=== PATIENT | female | born 1995 | race Caucasian/White ===

== ENCOUNTER 2019-09-17 16:41 | Emergency (ER) | payer SELFPAY ==
[~2019-09-17] VITALS: Ht 154.9 cm; Wt 66.2 kg
[2019-09-17 17:04] VITALS: BP 121/69
== END 2019-09-17 18:53 | disposition left against medical advice (07) ==
LOC: MED 16:41
DX: R42 Dizziness and giddiness (principal); Z53.21 Procedure and treatment not carried out due to patient leaving prior to being seen by health care provider

== ENCOUNTER 2019-09-21 11:32 | Emergency (ER) | payer SELFPAY ==
[~2019-09-21] VITALS: Ht 160 cm; Wt 65.1 kg
[2019-09-21 11:41] VITALS: BP 126/80
--- NOTE | 2019-09-21 11:44 | NUR ---
urine cup handed to pt for sample
--- NOTE | 2019-09-21 12:02 | NUR ---
24/F presents to ED with complaints of headache for the past 2 weeks. Pt describes a pressure like headache to front of head radiating to back of head and neck, 10/10 for the past x2 weeks. Pt also c/o N/V and intermittent episodes of blurry vision. Pt states the headache has been constant and continuous. Pt denies any medical hx at this time. Pt is AOX4, clear speech, acting appropriate to age. Pt appears calm and relaxed, waiting for ERMD evaluation.
--- NOTE | 2019-09-21 12:15 | NUR ---
Patient being evaluated by DR SIDDIQUI at bedside.
[2019-09-21 13:23] LABS: BASOPHILS % (AUTO) 0.1 % (0.0-2.0); EOSINOPHILS # (AUTO) 0.1 K/uL (0-0.4); EOSINOPHILS % (AUTO) 1.6 % (0.0-4.0); HEMATOCRIT 41.9 % (36-48); HEMOGLOBIN 14.1 g/dL (12.0-16.0); LYMPHOCYTES # (AUTO) 1.9 K/uL (2.5-16.5); LYMPHOCYTES % (AUTO) 24.2 % (20.5-51.1); MEAN CORPUSCULAR HEMOGLOBIN 32 pg (27-31); MEAN CORPUSCULAR HGB CONC 34 g/dL (33-37); MONOCYTES # (AUTO) 0.3 K/uL (0.8-1.0); MONOCYTES % (AUTO) 3.8 % (1.7-9.3); NEUTROPHILS # (AUTO) 5.6 K/uL (1.8-7.7); NEUTROPHILS % (AUTO) 70.3 % (42.2-75.2); PLATELET COUNT (AUTO) 252 K/uL (140-450); RED BLOOD CELL COUNT(AUTO) 4.46 MIL/uL (4.20-5.40); RED CELL DISTRIBUTION WIDTH 12.7 % (11.6-13.7); WHITE BLOOD COUNT (AUTO) 7.9 K/uL (4.8-10.8)
[2019-09-21 13:40] LABS: ANION GAP 14.8 (8-16); CARBON DIOXIDE 27.3 mmol/L (21-32); CREATININE 0.7 mg/dL (0.6-1.3); POTASSIUM 4.1 mmol/L (3.5-5.1); TOTAL BILIRUBIN 0.5 mg/dL (0.0-1.0)
[2019-09-21 14:14] VITALS: BP 118/68
--- NOTE | 2019-09-21 14:14 | NUR ---
Patient discharged with v/s stable. Written and verbal after care instructions given and explained. Patient alert, oriented and verbalized understanding of instructions. Ambulatory with steady gait. All questions addressed prior to discharge. ID band removed. Patient advised to follow up with PMD. Rx of FIORICET given. Patient educated on indication of medication including possible reaction and side effects. Opportunity to ask questions provided and answered.
== END 2019-09-21 14:14 | disposition home or self-care (01) ==
LOC: MED 11:32
DX: R51 Headache (principal); M79.10 Myalgia, unspecified site
CPT/HCPCS: 36415; 80053; 81002; 81025; 85025; 99283

== ENCOUNTER 2019-10-06 18:40 | Emergency (ER) | payer SELFPAY ==
[~2019-10-06] VITALS: Ht 157.5 cm; Wt 64.9 kg
[2019-10-06 18:50] VITALS: BP 106/71
--- NOTE | 2019-10-06 18:55 | NUR ---
AMB TO [facility]
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
--- NOTE | 2019-10-06 21:11 | NUR ---
CARL POOLE WITH PT
[2019-10-06 21:24] VITALS: BP 106/62
--- NOTE | 2019-10-06 21:40 | NUR ---
NO CHANGES FROM PREVIOUS ASSESSMENT. TDAP VACCINE GIVEN. WORK COMP PAPERWORK FILLED OUT BY MD AND GIVEN BACK TO PT. Patient discharged with v/s stable. Written and verbal after care instructions given and explained. Patient verbalized understanding. Ambulatory with steady gait. All questions addressed prior to discharge. Advised to follow up with PMD.
[2019-10-08 08:18] LABS: HEPATITIS B SURFACE ANTIGEN Negative (Negative)
== END 2019-10-06 21:40 | disposition home or self-care (01) ==
LOC: MED 18:40
DX: S61.232A Puncture wound without foreign body of right middle finger without damage to nail, initial encounter (principal); F14.90 Cocaine use, unspecified, uncomplicated; W46.0XXA Contact with hypodermic needle, initial encounter; Y93.89 Activity, other specified; Y92.89 Other specified places as the place of occurrence of the external cause; Y99.8 Other external cause status
CPT/HCPCS: 36415; 86592; 86702; 86803; 87340; 90471; 90715; 99283

== ENCOUNTER 2020-04-28 09:10 | Emergency (ER) | payer SELFPAY ==
[~2020-04-28] VITALS: Ht 152.4 cm; Wt 65.8 kg
[2020-04-28 09:15] VITALS: BP 120/79
--- NOTE | 2020-04-28 09:22 | NUR ---
PT AMB TO BED 2.
--- NOTE | 2020-04-28 09:27 | NUR ---
25/F FROM HOME PRESENTS TO ED WITH C/O LOWER ABD PAIN RADIATING TO LOW BACK X 3 DAYS. DENIES HEMATURIA, DYSURIA, URINARY URGENCY/FREQUENCY, VAGINAL BLEEDING, N/V, F/C. PAIN / INTERMITTENT, SHARP. PT UNSURE IF . STATES "MY LAST PERIOD WAS ON THIS PAST SATURDAY BUT IT WAS JUST 1 DAY AND IT WAS JUST SPOTTING BUT SOMETIMES IT'S LIKE THAT WHEN I'M STRESSED". HX- DENIES
--- NOTE | 2020-04-28 09:46 | NUR ---
DR. RAYGOZA EVALUATING PT AT BEDSIDE
--- NOTE | 2020-04-28 09:59 | NUR ---
U/S TECH AT BEDSIDE
[2020-04-28 10:22] LABS: BASOPHILS % (AUTO) 0.2 % (0.0-2.0); EOSINOPHILS # (AUTO) 0.1 K/uL (0-0.4); EOSINOPHILS % (AUTO) 0.8 % (0.0-4.0); HEMATOCRIT 43.6 % (36-48); HEMOGLOBIN 14.7 g/dL (12.0-16.0); LYMPHOCYTES # (AUTO) 1.7 K/uL (2.5-16.5); LYMPHOCYTES % (AUTO) 20.4 % (20.5-51.1); MEAN CORPUSCULAR HEMOGLOBIN 32 pg (27-31); MEAN CORPUSCULAR HGB CONC 34 g/dL (33-37); MEAN CORPUSCULAR VOLUME 95.1 fL (80-94); MONOCYTES # (AUTO) 0.5 K/uL (0.8-1.0); MONOCYTES % (AUTO) 5.7 % (1.7-9.3); NEUTROPHILS % (AUTO) 72.9 % (42.2-75.2); PLATELET COUNT (AUTO) 265 K/uL (140-450); RED BLOOD CELL COUNT(AUTO) 4.58 MIL/uL (4.20-5.40); RED CELL DISTRIBUTION WIDTH 12.9 % (11.6-13.7); WHITE BLOOD COUNT (AUTO) 8.3 K/uL (4.8-10.8)
--- NOTE | 2020-04-28 10:29 | NUR ---
URINE SAMPLE HANDED TO A P MECHANIC
--- NOTE | 2020-04-28 10:32 | NUR ---
Note alishadottie in EDM - 04/28/20 at 1034 by EDD Patient discharged with v/s stable. Written and verbal after care instructions given and explained to parent/guardian. Parent/Guardian verbalized understanding of instructions. Ambulatory with steady gait. All questions addressed prior to discharge. ID band removed. Parent/Guardian advised to follow up with PMD. Rx of CORTISPORIN AND MOTRIN given. Parent/Guardian educated on indication of medication including possible reaction and side effects. Opportunity to ask questions provided and answered.
--- NOTE | 2020-04-28 10:32 | NUR ---
Manju de la cruz in [facility] - 04/28/20 at 1034 by EDD PT SEEN AND DISCHARGED BY DR. RAYGOZA. NO NURSING CARE/SERVICES PROVIDED.
[2020-04-28 10:53] LABS: APPEARANCE,URINE CLEAR (CLEAR); BILIRUBIN,URINE NEGATIVE (NEGATIVE); BLOOD, URINE NEGATIVE (NEGATIVE); COLOR,URINE YELLOW (YELLOW); LEUKOCYTE ESTERASE ,URINE 3+ (NEGATIVE); NITRITE, URINE NEGATIVE (NEGATIVE); PH,URINE 8.5 (5.0-9.0); UGLUCOSE NEGATIVE (NEGATIVE)
--- NOTE | 2020-04-28 11:12 | NUR ---
DR. RAYGOZA SPEAKING WITH PATIENT AT BEDSIDE
[2020-04-28 11:19] LABS: RBC,URINE 0-5 /HPF (0-5); WBC,URINE 16-25 (MOD) /HPF (0-5)
--- NOTE | 2020-04-28 11:20 | NUR ---
Patient discharged with v/s stable. Written and verbal after care instructions given and explained. Patient alert, oriented and verbalized understanding of instructions. Ambulatory with steady gait. All questions addressed prior to discharge. ID band removed. Patient advised to follow up with PMD. Rx of Macrobid given. Instructed OKAY to take TYLENOL prn for pain. Patient educated on indication of medication including possible reaction and side effects. Opportunity to ask questions provided and answered.
[2020-04-28 11:21] VITALS: BP 111/68
== END 2020-04-28 11:20 | disposition home or self-care (01) ==
LOC: MED 09:10
DX: O23.41 Unspecified infection of urinary tract in pregnancy, first trimester (principal); F12.90 Cannabis use, unspecified, uncomplicated; Z3A.01 Less than 8 weeks gestation of pregnancy
CPT/HCPCS: 36415; 76801; 76817; 81001; 81025; 84702; 85025; 86900; 86901; 87086; 99285; Q0092

== ENCOUNTER 2020-11-29 09:57 | Emergency (ER) | payer MEDICAID ==
[~2020-11-29] VITALS: Ht 152.4 cm; Wt 61.2 kg
[2020-11-29 10:20] VITALS: BP 112/77
--- NOTE | 2020-11-29 10:36 | NUR ---
25 YEAR OLD FEMALE COMPLAINS OF COUGH, SORE THROAT X 3 DAYS. PT STATES SHE WANTS TO GET TESTED FOR WORK. PT AOX4, BREATHING EVEN AND UNLABORED, SKIN WARM AND DRY. BED IN LOWEST POSITION, LOCKED, BED RAIL UPX1. PMH - DENIES ALLERGIES - NKA
--- NOTE | 2020-11-29 11:37 | NUR ---
Dr. Monsalve is evaluating the patient at bedside.
[2020-11-29] MEDS ORDERED: IBUP-2213 PO (11:50)
[2020-11-29] MEDS ORDERED: PRED20TA5 PO (11:50)
[2020-11-29 11:57] VITALS: BP 112/77
--- NOTE | 2020-11-29 11:58 | NUR ---
Patient discharged with v/s stable. Written and verbal after care instructions about pharyngitis given and explained. Patient alert, oriented and verbalized understanding of instructions. Ambulatory with steady gait. All questions addressed prior to discharge. ID band removed. Patient advised to follow up with PMD. Rx of ibuprofen, prednisone given. Patient educated on indication of medication including possible reaction and side effects. Opportunity to ask questions provided and answered.
== END 2020-11-29 11:58 | disposition home or self-care (01) ==
LOC: MED 09:57
DX: J02.8 Acute pharyngitis due to other specified organisms (principal); B97.89 Other viral agents as the cause of diseases classified elsewhere; F12.90 Cannabis use, unspecified, uncomplicated
CPT/HCPCS: 81002; 81025; 99283

== ENCOUNTER 2021-02-02 17:54 | Emergency (ER) | payer SELFPAY ==
[~2021-02-02] VITALS: Ht 154.9 cm; Wt 64.0 kg
[~2021-02-02 17:54] MED LIST: IBUP-2213 PO; PRED20TA5 PO
[2021-02-02 17:59] VITALS: BP 130/91
[2021-02-02] MEDS: METOCLOPRAMIDE 10 MG/2 ML INJ VIAL IVP ONE (18:22)
[2021-02-02] MEDS: ACETAMINOPHEN EXTRA STRENGTH 500 MG TAB PO ONE (18:22)
[2021-02-02] MEDS: KETOROLAC 30 MG/ML VIAL IVP ONE (18:22)
[2021-02-02] MEDS: NACL 0.9% 1,000 ML IV ONE (18:22)
[2021-02-02] MEDS ORDERED: METO-486 PO (18:58)
[2021-02-02 19:58] VITALS: BP 130/91
== END 2021-02-02 19:55 | disposition home or self-care (01) ==
LOC: MED 17:54
DX: G43.909 Migraine, unspecified, not intractable, without status migrainosus (principal)
CPT/HCPCS: 81025; 96361; 96374; 96375; 99284; J1885; J2765; J7030

== ENCOUNTER 2021-09-12 09:09 | Emergency (ER) | payer SELFPAY ==
[~2021-09-12] VITALS: Ht 152.4 cm; Wt 65.8 kg
[~2021-09-12 09:09] MED LIST changes: +METO-486 PO
[2021-09-12 09:16] VITALS: BP 120/75
--- NOTE | 2021-09-12 09:20 | NUR ---
TENT 1.
[2021-09-12] MEDS ORDERED: PROM6.2590 PO (09:46)
[2021-09-12] MEDS ORDERED: NAPR-54 PO (09:46)
[2021-09-12] MEDS ORDERED: LORA1T1237 PO (09:46)
[2021-09-12 09:59] VITALS: BP 120/75
--- NOTE | 2021-09-12 10:00 | NUR ---
Patient discharged with v/s stable. Written and verbal after care instructions given and explained. Patient alert, oriented and verbalized understanding of instructions. Ambulatory with steady gait. All questions addressed prior to discharge. ID band removed. Patient advised to follow up with PMD. Rx of NAPROXEN, CLARITIN, PROMETHAZINE given. Patient educated on indication of medication including possible reaction and side effects. Opportunity to ask questions provided and answered.
== END 2021-09-12 10:00 | disposition home or self-care (01) ==
LOC: MED 09:09
DX: B34.9 Viral infection, unspecified (principal); F12.90 Cannabis use, unspecified, uncomplicated; Z79.899 Other long term (current) drug therapy
CPT/HCPCS: 99283

== ENCOUNTER 2021-10-16 13:11 | Emergency (ER) | payer MEDICAID ==
[~2021-10-16] VITALS: Ht 154.9 cm; Wt 66.7 kg
[~2021-10-16 13:11] MED LIST changes: +LORA1T1237 PO; +NAPR-54 PO; +PROM6.2590 PO
[2021-10-16 13:29] VITALS: BP 109/66
[2021-10-16 15:07] LABS: BASOPHILS # (AUTO) 0.1 K/uL (0.00-0.22); EOSINOPHILS # (AUTO) 0.3 K/uL (0-0.4); EOSINOPHILS % (AUTO) 4.2 % (0.0-4.0); HEMATOCRIT 37.7 % (36-48); LYMPHOCYTES # (AUTO) 1.9 K/uL (2.5-16.5); LYMPHOCYTES % (AUTO) 23.8 % (20.5-51.1); MEAN CORPUSCULAR HEMOGLOBIN 32 pg (27-31); MEAN CORPUSCULAR HGB CONC 35 g/dL (33-37); MEAN CORPUSCULAR VOLUME 92.5 fL (80-94); MONOCYTES # (AUTO) 0.4 K/uL (0.8-1.0); MONOCYTES % (AUTO) 5.3 % (1.7-9.3); NEUTROPHILS # (AUTO) 5.4 K/uL (1.8-7.7); NEUTROPHILS % (AUTO) 65.7 % (42.2-75.2); PLATELET COUNT (AUTO) 272 K/uL (140-450); RED BLOOD CELL COUNT(AUTO) 4.08 MIL/uL (4.20-5.40); RED CELL DISTRIBUTION WIDTH 12.5 % (11.6-13.7); WHITE BLOOD COUNT (AUTO) 8.2 K/uL (4.8-10.8)
[2021-10-16 16:23] LABS: ALBUMIN 3.5 g/dL (3.4-5.0); ANION GAP 13.9 (8-16); CARBON DIOXIDE 24.9 mmol/L (21-32); CREATININE 0.5 mg/dL (0.6-1.3); POTASSIUM 3.8 mmol/L (3.5-5.1); TOTAL BILIRUBIN 0.3 mg/dL (0.0-1.0)
[2021-10-16 16:53] LABS: APPEARANCE,URINE CLEAR (CLEAR); BILIRUBIN,URINE NEGATIVE (NEGATIVE); BLOOD, URINE NEGATIVE (NEGATIVE); COLOR,URINE YELLOW (YELLOW); LEUKOCYTE ESTERASE ,URINE NEGATIVE (NEGATIVE); NITRITE, URINE NEGATIVE (NEGATIVE); UGLUCOSE NEGATIVE (NEGATIVE)
[2021-10-16] MEDS ORDERED: LID5T TP (17:28)
[2021-10-16] MEDS ORDERED: ACET-10509 PO (17:28)
--- NOTE | 2021-10-16 18:13 | NUR ---
Patient discharged with v/s stable. Written and verbal after care instructions given and explained. Patient alert, oriented and verbalized understanding of instructions. Ambulatory with steady gait. All questions addressed prior to discharge. ID band removed. Patient advised to follow up with PMD. Rx of TYLENOL AND LIDOCAINE PATCH given. Patient educated on indication of medication including possible reaction and side effects. Opportunity to ask questions provided and answered.
== END 2021-10-16 18:13 | disposition home or self-care (01) ==
LOC: MED 13:11
DX: O21.8 Other vomiting complicating pregnancy (principal); O26.891 Other specified pregnancy related conditions, first trimester; M54.50 Low back pain, unspecified; Z3A.09 9 weeks gestation of pregnancy; Z79.899 Other long term (current) drug therapy
CPT/HCPCS: 36415; 76801; 80053; 81003; 83690; 84702; 85025; 86901; 99284; Q0092

== ENCOUNTER 2021-11-11 19:44 | Emergency (ER) | payer MEDICAID ==
[~2021-11-11] VITALS: Ht 157.5 cm; Wt 65.0 kg
[~2021-11-11 19:44] MED LIST changes: +ACET-10509 PO; +LID5T TP
[2021-11-11 20:08] VITALS: BP 113/78
--- NOTE | 2021-11-11 20:13 | NUR ---
PT GIVEN URINE CUP, PT SENT TO LOBBY. STATED SHE WILL WAIT OUTSIDE.
--- NOTE | 2021-11-11 20:40 | NUR ---
PT TAKEN TO BED 09.
--- NOTE | 2021-11-11 20:42 | NUR ---
ER AT BEDSIDE
[2021-11-11] MEDS ORDERED: ONDANSETRON 4 MG ODT PO ONE (20:50)
[2021-11-11] MEDS ORDERED: NACL 0.9% 1,000 ML IV ONE (20:50)
[2021-11-11] MEDS ORDERED: DOXY1TCP PO (21:02)
[2021-11-11 21:30] LABS: BASOPHILS % (AUTO) 0.2 % (0.0-2.0); EOSINOPHILS # (AUTO) 0.1 K/uL (0-0.4); HEMATOCRIT 38.9 % (36-48); HEMOGLOBIN 13.4 g/dL (12.0-16.0); LYMPHOCYTES # (AUTO) 0.9 K/uL (2.5-16.5); LYMPHOCYTES % (AUTO) 13.1 % (20.5-51.1); MEAN CORPUSCULAR HEMOGLOBIN 32 pg (27-31); MEAN CORPUSCULAR HGB CONC 34 g/dL (33-37); MEAN CORPUSCULAR VOLUME 91.6 fL (80-94); MONOCYTES # (AUTO) 0.4 K/uL (0.8-1.0); MONOCYTES % (AUTO) 5.3 % (1.7-9.3); NEUTROPHILS # (AUTO) 5.7 K/uL (1.8-7.7); NEUTROPHILS % (AUTO) 80.4 % (42.2-75.2); PLATELET COUNT (AUTO) 247 K/uL (140-450); RED BLOOD CELL COUNT(AUTO) 4.25 MIL/uL (4.20-5.40); RED CELL DISTRIBUTION WIDTH 12.8 % (11.6-13.7); WHITE BLOOD COUNT (AUTO) 7.1 K/uL (4.8-10.8)
[2021-11-11 22:06] LABS: ANION GAP 11.2 (8-16); CARBON DIOXIDE 24.2 mmol/L (21-32); CREATININE 0.5 mg/dL (0.6-1.3); POTASSIUM 3.4 mmol/L (3.5-5.1)
[2021-11-11 22:12] LABS: ALBUMIN 3.3 g/dL (3.4-5.0); BILIRUBIN,DIRECT 0.1 mg/dL (0.0-0.3); TOTAL BILIRUBIN 0.4 mg/dL (0.0-1.0)
--- NOTE | 2021-11-11 22:20 | NUR ---
LAB ADVISED UA WILL BE OUT SHORTLY
[2021-11-11 22:23] LABS: APPEARANCE,URINE CLEAR (CLEAR); BILIRUBIN,URINE NEGATIVE (NEGATIVE); BLOOD, URINE NEGATIVE (NEGATIVE); COLOR,URINE YELLOW (YELLOW); LEUKOCYTE ESTERASE ,URINE NEGATIVE (NEGATIVE); NITRITE, URINE NEGATIVE (NEGATIVE); PH,URINE 6.5 (5.0-9.0); UGLUCOSE NEGATIVE (NEGATIVE)
--- NOTE | 2021-11-12 00:02 | NUR ---
PATIENT CLEARED FOR DISHCARGE AT THIS TIME. ADVISED TO FOLLOW UP WITH OB AND RETURN IF CONDITION WORSENS. NO OTHER COMPLAINTS OR CONCERNS AT THIS TIME FOLLOWING DISHCARGE TEACHING.
[2021-11-12 00:04] VITALS: BP 97/64
== END 2021-11-12 00:02 | disposition home or self-care (01) ==
LOC: MED 19:44
DX: O21.9 Vomiting of pregnancy, unspecified (principal); O26.891 Other specified pregnancy related conditions, first trimester; R10.13 Epigastric pain; Z79.899 Other long term (current) drug therapy
CPT/HCPCS: 36415; 80048; 80076; 81003; 81025; 83690; 85025; 96360; 99283; J7030; Q0162

== ENCOUNTER 2023-10-09 19:51 | Emergency (ER) | payer MEDICAID, OTHER ==
[~2023-10-09] VITALS: Ht 152.4 cm; Wt 81.6 kg
[~2023-10-09 19:51] MED LIST changes: +DOXY1TCP PO
[2023-10-09 20:41] VITALS: BP 110/77; PULSE 120; RESP 19; TEMP 98.9; O2SAT 100
[2023-10-09] MEDS: ONDANSETRON 4 MG ODT PO ONE (21:23)
[2023-10-09 21:35] LABS: FLU A ANTIGEN negative (NEGATIVE); FLU B ANTIGEN NEGATIVE (NEGATIVE)
[2023-10-09 22:22] LABS: APPEARANCE,URINE CLEAR (CLEAR); BILIRUBIN,URINE NEGATIVE (NEGATIVE); BLOOD, URINE NEGATIVE (NEGATIVE); COLOR,URINE YELLOW (YELLOW); LEUKOCYTE ESTERASE ,URINE NEGATIVE (NEGATIVE); NITRITE, URINE NEGATIVE (NEGATIVE); PROTEIN,URINE NEGATIVE (NEGATIVE); UGLUCOSE NEGATIVE (NEGATIVE)
[2023-10-09] MEDS ORDERED: ONDA-188 SL (22:34)
[2023-10-09] MEDS ORDERED: METH4TAB1 PO (22:34)
== END 2023-10-09 22:30 | disposition home or self-care (01) ==
LOC: MED 19:51
DX: R11.2 Nausea with vomiting, unspecified (principal); J03.80 Acute tonsillitis due to other specified organisms; B97.89 Other viral agents as the cause of diseases classified elsewhere; Z20.822 Contact with and (suspected) exposure to COVID-19; Z79.899 Other long term (current) drug therapy; Z79.1 Long term (current) use of non-steroidal anti-inflammatories (NSAID)
CPT/HCPCS: 81003; 81025; 87426; 87804; 93005; 99284; Q0162